=== PATIENT | female | born 1995 | race Caucasian/White ===

== ENCOUNTER 2017-02-10 22:38 | Emergency (ER) | payer OTHER, BC ==
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
[2017-02-10 23:35] VITALS: BP 114/63; PULSE 89; RESP 18; TEMP 98.7
== END 2017-02-10 23:54 | disposition home or self-care (01) ==
LOC: EC 22:38
DX: R51 Headache (principal); V49.59XA Passenger injured in collision with other motor vehicles in traffic accident, initial encounter
CPT/HCPCS: 70450; 99284